=== PATIENT | male | born 1995 | race Caucasian/White ===

== ENCOUNTER → 2020-01-04 09:53 | Outpatient (CLI) | payer OTHER, MEDICAID, SELFPAY ==
[2020-01-04 11:44] LABS: Hepatitis B Surface Antigen NEGATIVE s/c (NEGATIVE)
[2020-01-04 11:52] LABS: HIV 1 & 2 Ab/Ag 4th Gen Combo NEGATIVE (NEGATIVE); Hep C Virus Ab w/Reflex Quant NEGATIVE s/c (NEGATIVE)
[2020-01-04 12:26] LABS: Urine N gonorrhoeae NOT DETECTED
[2020-01-04 12:33] LABS: Urine Chlamydia NOT DETECTED
[2020-01-05 05:39] LABS: RPR Screen Non Reactive (Non Reactive)
[2020-01-07 20:07] LABS: HSV I/II IgM <0.91 Ratio (0.00-0.90)
== END ==
PROVIDERS: Referring Provider Physician Assistant; Visit Provider Physician Assistant
DX: Z11.3 Encounter for screening for infections with a predominantly sexual mode of transmission (principal)
CPT/HCPCS: 36415; 86592; 86694; 86803; 87340; 87389; 87491; 87591